=== PATIENT | male | born 1985 | race American Indian/Alaskan Native ===

== ENCOUNTER 2016-08-07 10:33 | Emergency (ER) | payer SELFPAY ==
[2016-08-07 11:27] VITALS: BP 146/98
[2016-08-07] MEDS ORDERED: FUL-GLO OP ONE (14:30)
[2016-08-07] MEDS ORDERED: TETRACAINE 0.5% ONE (14:30)
[2016-08-07] MEDS ORDERED: BSS 1 DROPS, TETRACAINE 0.5% 1 DROPS, FUL-GLO 1 MG OD ONE (14:32)
--- NOTE | 2016-08-07 14:43 | Emergency Department Report ---
ED Eye Problem HPI - General Chief complaint: Eye Problems Stated complaint: RT EYE IRRITATION Time Seen by Provider: 08/07/16 14:31 Source: patient Mode of arrival: Ambulatory Limitations: No Limitations - History of Present Illness Initial comments: 31-year-old -[place] male comes in for right eye pain and irritation while at work yesterday evening. 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 He reports that his eye is itchy with drainage. He also admits to eye pain and swelling. - Related Data Previous Rx's Medication Instructions Recorded Last Taken Type Acetaminophen/Codeine [Tylenol 1 tab PO Q6H PRN #20 tab 08/07/16 Unknown Rx /Codeine # 3 tab] Tobramycin/Dexamethasone [Tobradex 1 - 2 drop OP Q2HR #1 bottle 08/07/16 Unknown Rx Eye Drops 0.3/0.1%] Allergies Allergy/AdvReac Type Severity Reaction Status Date / Time No Known Allergies Allergy Unverified 08/07/16 11:27 ED Review of Systems ROS: Stated complaint: RT EYE IRRITATION Other details as noted in HPI ED Past Medical Hx - Past Medical History Previous Medical History?: No - Surgical History Past Surgical History?: No - Social History Smoking Status: Current Every Day Smoker Substance Use Type: None - Medications Home Medications: Home Medications Medication Instructions Recorded Confirmed Last Taken Type Acetaminophen/Codeine [Tylenol 1 tab PO Q6H PRN #20 tab 08/07/16 Unknown Rx /Codeine # 3 tab] Tobramycin/Dexamethasone [Tobradex 1 - 2 drop OP Q2HR #1 bottle 08/07/16 Unknown Rx Eye Drops 0.3/0.1%] ED Physical Exam - General Limitations: No Limitations General appearance: alert, in no apparent distress - Eye Eye exam: Present: scleral icterus, conjunctival injection, periorbital swelling , other (corneal abrasion bulls eye as well as very small one located about 5: 00.) - Expanded Eye Exam Expanded Eyelids: Erythema: Right, Swelling: Right Pupils: Regular, Round: Right, Reactive: Right Sclera/Conjunctival: Injection: Right Posterior chamber: Deferred: Right ED Course Vital Signs 08/07/16 11:25 Temperature 98.6 F Pulse Rate 96 H Respiratory 18 Rate Blood Pressure 146/98 O2 Sat by Pulse 100 Oximetry ED Medical Decision Making - Medical Decision Making Patient has been evaluated by this provider in fast track. Discussed with patient that my findings under the floor seen exam shows that there is a corneal abrasion pretty significant located straight as bulls eye. There is a small pinpoint 1 located at the right lower quadrant about 5:00. Discussed with patient that is very important for him to follow up with an return to vendor. I will will refer him to several. Also discussed with patient it is very important for him to use the eyedrops to help with prevention of infection to the cornea. Patient can take ibuprofen or Tylenol 3 for pain. I will prescribe both. Critical care attestation.: If time is entered above; I have spent that time in minutes in the direct care of this critically ill patient, excluding procedure time. ED Disposition Clinical Impression: Cornea abrasion Qualifiers: Encounter type: initial encounter Laterality: right Qualified Code(s): S05.01XA - Injury of conjunctiva and corneal abrasion without foreign body, right eye, initial encounter Disposition: DISCHARGED TO HOME OR SELFCARE Is pt being admited?: No Does the pt Need Aspirin: No Condition: Stable Instructions: Corneal Abrasion (ED) Additional Instructions: The use eyedrops to prevent infections of your right eye. It is very important for you to follow-up with an return to vendor for further evaluation. I have listed several below for your convenience. Please take pain medication as prescribed. You can also take ibuprofen for pain as well. Prescriptions: Acetaminophen/Codeine [Tylenol /Codeine # 3 tab] 1 tab PO Q6H PRN #20 tab PRN Reason: Pain Tobramycin/Dexamethasone [Tobradex Eye Drops 0.3/0.1%] 1 - 2 drop OP Q2HR #1 bottle Referrals: PRIMARY MD NILSA [Primary Care Provider] - 3-5 Days KLAUS TEMPLETON MD [Staff Physician] - 3-5 Days [facility] [Provider Group] - 3-5 Days [facility], [facility] [Provider Group] - 3-5 Days Forms: Work/School Release Form(ED)
[2016-08-07] MEDS ORDERED: NORCO 7.5/325 PO ONE (14:53)
== END 2016-08-07 15:18 | disposition home or self-care (01) ==
LOC: ED 10:33
DX: S05.01XA Injury of conjunctiva and corneal abrasion without foreign body, right eye, initial encounter (principal); F17.200 Nicotine dependence, unspecified, uncomplicated; X58.XXXA Exposure to other specified factors, initial encounter; Y93.89 Activity, other specified; Y92.59 Other trade areas as the place of occurrence of the external cause; Y99.8 Other external cause status
CPT/HCPCS: 99283